=== PATIENT | female | born 1995 | race Caucasian/White ===

== ENCOUNTER 2019-06-07 19:42 | Emergency (ER) | payer OTHER, SELFPAY ==
[2019-06-07 19:46] VITALS: BP 159/104; PULSE 99; RESP 20; TEMP 37; O2SAT 100
--- NOTE | 2019-06-07 20:18 | ED.DENTAL ---
HPI - Dental/Oral General Chief complaint: Dental/Oral Stated complaint: L jaw pain Time Seen by Provider: 06/07/19 19:58 Source: patient and RN notes reviewed History of Present Illness HPI Narrative: Patient is a 23-year-old female who presents with left jaw pain. Patient reports wisdom tooth extraction in April, root canal on tooth 15 approximately 1 week ago, patient due to have fillings put in tomorrow and reports increased pain over the past week that radiates into her jaw.. Patient reports taking [id number] ibuprofen with no relief. Patient tearful and also reporting anxiety. Patient reports that she used to be on BuSpar but has not taken in over 6 months. MD Complaint: tooth pain Related Data Allergies Allergy/AdvReac Type Severity Reaction Status Date / Time No Known Allergies Allergy Verified 06/07/19 20:23 Review of Systems Review of Systems: Narrative: CONSTITUTIONAL: Denies fever, chills, or sweats. EYES: Denies visual changes, redness, or discharge. ENT: Denies rhinorrhea, congestion, sore throat, or otalgia. Reports left jaw and left upper dental pain CARDIOVASCULAR: Denies chest pain, palpitations, or edema. RESPIRATORY: Denies cough or dyspnea. GASTROINTESTINAL: Denies abdominal pain, nausea, vomiting, or diarrhea. GENITOURINARY: Denies dysuria or hematuria. SKIN: Denies rash or itching. MUSCULOSKELETAL: Denies back pain, joint pain, or myalgia. NEUROLOGIC: Denies headache, numbness, dizziness, or weakness. PSYCHIATRIC: Denies anxiety or depression. PMFSH Past Medical History Medical History (Updated 06/07/19 @ 20:32 by JOSUE Lara) Anxiety Depression Surgical History Surgical History (Updated 06/07/19 @ 20:22 by JOSUE Lara) No history of previous surgery Social History Social History (Updated 06/07/19 @ 20:23 by JOSUE Lara) Smoking status: Current some day smoker Alcohol intake: current Alcohol use details: occasional Substance use: never Living arrangements: with friend(s) Occupation/Education: occupation Gender identity (if verbalized by the patient): Female Exam Narrative: Exam Narrative: GENERAL: Well-appearing, well-nourished, and in no acute distress. HEAD: Normocephalic, atraumatic. EYES: EOMI. No redness or drainage. Conjunctiva are normal. ENT: Mucous membranes pink and moist. Nares clear. No rhinorrhea. TMs normal bilaterally. Throat normal. Uvula midline. Multiple dental caries. NECK: AROM. Supple. No lymphadenopathy. CHEST: No respiratory distress. Clear to auscultation. HEART: Regular rate and rhythm. No murmur appreciated. Normal peripheral pulses. EXTREMITIES: Normal range of motion. No edema. SKIN: Warm, dry, no rash. NEURO: No focal deficits. Alert and oriented x3. Gait steady. PSYCH: Normal affect. No signs of depression or anxiety. Course Vital Signs Vital signs: Vital Signs Temperature 37.0 C 06/07/19 19:46 Pulse Rate 99 06/07/19 19:46 Respiratory Rate 06/07/19 19:46 Blood Pressure 159/104 H 06/07/19 19:46 Pulse Oximetry 100 06/07/19 19:46 Temperature 37.0 C 06/07/19 19:46 Pulse Rate 99 06/07/19 19:46 Respiratory Rate 06/07/19 19:46 Blood Pressure 159/104 H 06/07/19 19:46 Pulse Oximetry 100 06/07/19 19:46 MDM - Dental/Oral MDM Narrative Medical decision making narrative: Discussed with patient that she most likely has dental pain related to her recent and upcoming root canal. Patient agreed but remained tearful and anxious. Discussed with patient the need to follow-up with her PCP for refill on her antianxiety medication. Patient agreed and is aware. Patient is stable for discharge to home with outpatient follow-up care as directed. Differential Diagnosis Differential diagnosis: Likely dental caries Critical Care Time Critical Care Time Critical Care Time: No Discharge Plan Discharge Clinical Impression: Toothache, Dental caries, Anxiet
[2019-06-07] MEDS: hydrOXYzine HCL 25 MG TABLET 50 MG PO (20:30)
[2019-06-07] MEDS: KETOROLAC (*BKC) 60 MG/2 ML VIAL IM (20:30)
[2019-06-07] MEDS: Please add drug allergy info to patient profile. 1 EACH XX (20:30)
[2019-06-07 21:00] VITALS: BP 120/88; PULSE 80; RESP 18; TEMP 37.1; O2SAT 99
== END 2019-06-07 21:01 | disposition home or self-care (01) ==
PROVIDERS: Emergency Provider Nurse Practitioner
DX: K02.9 Dental caries, unspecified (principal); F41.9 Anxiety disorder, unspecified; F17.200 Nicotine dependence, unspecified, uncomplicated
CPT/HCPCS: 96372; 99283; A9270; J1885

== ENCOUNTER 2023-05-05 03:22 | Emergency (ER) | payer SELFPAY ==
[2023-05-05 03:23] VITALS: BP 145/100; PULSE 66; RESP 18; TEMP 36.3; O2SAT 100
== END 2023-05-05 07:14 | disposition left against medical advice (07) ==
LOC: ANHED 05:51
DX: R10.11 Right upper quadrant pain (principal); R11.2 Nausea with vomiting, unspecified; Z53.21 Procedure and treatment not carried out due to patient leaving prior to being seen by health care provider
CPT/HCPCS: 99199